=== PATIENT | female | born 1940 | race Caucasian/White ===

== ENCOUNTER 2021-03-27 20:15 | Emergency (ER) | payer OTHER ==
[~2021-03-27] VITALS: Ht 152.4 cm; Wt 70.3 kg
[2021-03-27 20:59] VITALS: BP 151/77
--- NOTE | 2021-03-27 22:02 | NUR ---
pt taken to bed 08.
[2021-03-27 22:43] LABS: BASOPHILS % (AUTO) 0.4 % (0.0-2.0); EOSINOPHILS # (AUTO) 0.1 K/uL (0-0.4); EOSINOPHILS % (AUTO) 1.2 % (0.0-4.0); HEMATOCRIT 32.5 % (36-48); HEMOGLOBIN 10.8 g/dL (12.0-16.0); LYMPHOCYTES # (AUTO) 1.6 K/uL (2.5-16.5); LYMPHOCYTES % (AUTO) 26.9 % (20.5-51.1); MEAN CORPUSCULAR HEMOGLOBIN 28 pg (27-31); MEAN CORPUSCULAR HGB CONC 33 g/dL (33-37); MEAN CORPUSCULAR VOLUME 85.2 fL (80-94); MONOCYTES # (AUTO) 0.3 K/uL (0.8-1.0); MONOCYTES % (AUTO) 5.7 % (1.7-9.3); NEUTROPHILS # (AUTO) 3.8 K/uL (1.8-7.7); NEUTROPHILS % (AUTO) 65.8 % (42.2-75.2); PLATELET COUNT (AUTO) 215 K/uL (140-450); RED BLOOD CELL COUNT(AUTO) 3.81 MIL/uL (4.20-5.40); WHITE BLOOD COUNT (AUTO) 5.8 K/uL (4.8-10.8)
--- NOTE | 2021-03-27 22:50 | NUR ---
80 y/o f bib familyfor c/o of htn. pt states it has been for 1.5 days. she complains of a headache. pt has no other symptoms. pr denies chest pain , sob, n/v/f/ falls. pt s ax0x4 and is ambulatory past medical hx: htn, diabetes, high cholesterol. pt denies smoking, drinking
[2021-03-27 22:56] LABS: ANION GAP 12.6 (8-16); CARBON DIOXIDE 28.2 mmol/L (21-32); CHLORIDE 107 mmol/L (98-107); CREATININE 0.7 mg/dL (0.6-1.3); GLUCOSE 116 mg/dL (74-106); POTASSIUM 3.8 mmol/L (3.5-5.1); SODIUM SERUM 144 mmol/L (136-145); UREA NITROGEN, BLOOD 15 mg/dL (7-18)
[2021-03-27] MEDS ORDERED: CLONIDINE HYDROCHLORIDE 0.1 MG TAB PO ONE (23:15)
[2021-03-27 23:40] VITALS: BP 185/99
--- NOTE | 2021-03-27 23:40 | NUR ---
Patient discharged with v/s stable. Written and verbal after care instructions given and explained. Patient verbalized understanding. Ambulatory with steady gait. All questions addressed prior to discharge. Advised to follow up with PMD.
--- NOTE | 2021-03-28 00:07 | NUR ---
Note jacob in EDM - 03/28/21 at 0017 by CYN 80 y/o f bib familyfor c/o of htn. pt states it has been for 1.5 days. she complains of a headache. pt has no other symptoms. pr denies chest pain , sob, n/v/f/ falls. pt s ax0x4 and is ambulatory past medical hx: htn, diabetes, high cholesterol.
== END 2021-03-27 23:40 | disposition home or self-care (01) ==
LOC: MED 20:15
DX: I10 Essential (primary) hypertension (principal); E11.9 Type 2 diabetes mellitus without complications; E78.5 Hyperlipidemia, unspecified
CPT/HCPCS: 36415; 80048; 85025; 99285